=== PATIENT | male | born 2000 | race Asian ===

== ENCOUNTER 2020-07-08 11:59 | Emergency (ER) | payer OTHER ==
[~2020-07-08] VITALS: Ht 157.5 cm; Wt 51.4 kg
[2020-07-08 13:18] VITALS: BP 113/75
== END 2020-07-08 13:27 | disposition home or self-care (01) ==
LOC: EMS 11:59
DX: S60.512A Abrasion of left hand, initial encounter (principal); F41.9 Anxiety disorder, unspecified; V49.49XA Driver injured in collision with other motor vehicles in traffic accident, initial encounter; Y93.89 Activity, other specified; Y92.413 State road as the place of occurrence of the external cause; Y99.8 Other external cause status